=== PATIENT | male | born 1980 | race Caucasian/White ===

== ENCOUNTER 2019-11-07 14:06 | Emergency (ER) | payer OTHER ==
--- NOTE | 2019-11-07 17:02 | RADIOLOGY REPORT (SQ) ---
EXAM DESCRIPTION: FOOT LEFT COMPLETE IMAGES COMPLETED DATE/TIME: 11/07/2019 3:45 pm REASON FOR STUDY: possible stingray injury, medial foot COMPARISON: None. NUMBER OF VIEWS: Three views. TECHNIQUE: AP, lateral and oblique radiographic images acquired of the left foot. LIMITATIONS: None. FINDINGS: MINERALIZATION: Normal. BONES: No acute fracture or dislocation. No worrisome bone lesions. JOINTS: No effusions. SOFT TISSUES: No soft tissue swelling. No foreign body. OTHER: No other significant finding. IMPRESSION: No radiographic abnormality of the left foot. TECHNICAL DOCUMENTATION: JOB ID: [id number] [employer]- All Rights Reserved Reading location - IP/workstation name: [email or web address]
--- NOTE | 2019-11-07 17:27 | ER Document Report ---
HPI - HPI Time Seen by Provider: 11/07/19 14:46 Pain Level: 2 Notes: 38-year-old male patient presenting to the emergency department with possible stingray injury. [place] felt what he thought was a stingray under his foot and then felt a sharp stabbing sensation to the medial left foot. He states the pain was very severe initially. He reports that he is otherwise healthy and all immunizations are up-to-date. - MUSCULOSKELETAL Musculoskeletal: REPORTS: Extremity pain Past Medical History - General Information source: Patient - Social History Smoking Status: Never Smoker Chew tobacco use (# tins/day): No Frequency of alcohol use: None Drug Abuse: None Family History: Reviewed & Not Pertinent Patient has homicidal ideation: No - Past Medical History Cardiac Medical History: Reports: Hx Hypertension Past Surgical History: Reports: Hx Abdominal Surgery - hernia repair, Hx Appendectomy, Hx Orthopedic Surgery - left knee Vertical Provider Document - CONSTITUTIONAL Notes: PHYSICAL EXAMINATION: GENERAL: Well-appearing, well-nourished and in no acute distress. HEAD: Atraumatic, normocephalic. EYES: Pupils equal round extraocular movements intact, conjunctiva are normal. ENT: Nares patent NECK: Normal range of motion LUNGS: No respiratory distress Musculoskeletal: Normal range of motion NEUROLOGICAL: Normal speech, normal gait. PSYCH: Normal mood, normal affect. SKIN: Small puncture wound noted to medial left foot, mild surrounding erythema. Dorsalis pedis pulse strong, cap refill is in 3 seconds. Course - Re-evaluation Re-evalutation: Small puncture wound noted to medial left foot. Nothing found on the x-ray. Will start patient on doxycycline and provide pain medication. Patient reports pain much improved after soaking foot in hot water. Patient will be discharged home at this time. - Vital Signs Vital signs: Temp Pulse Resp BP Pulse Ox 99.2 F 93 20 143/90 H 96 11/07/19 14:44 11/07/19 14:11 11/07/19 14:11 11/07/19 14:11 11/07/19 14:11 Discharge - Discharge Clinical Impression: Contact with stingray as cause of accidental injury Condition: Stable Disposition: HOME, SELF-CARE Additional Instructions: Marine Puncture Envenomation Sea urchins, stonefish, catfish, and stingrays have spines that can puncture. The spines can break off under the skin. Even if the spine pulls out cleanly, it often leaves its "skin" behind. The skin on a spine contains mild poison. There is also risk of infection. If any portion of a spine is left behind, it should be removed. Sometimes a spine can't be found. In these cases we treat for infection, then go after the spine later if things look suspicious. The main symptom of poisoning is VERY severe pain at the site of the puncture. The area may immediately become swollen and red. If the poisoning is severe, there may be weakness and difficulty breathing. Initial treatment is to soak the area in very hot water. This may inactivate the toxin. Pain is best controlled by local anesthetic. Usually we cut open the sting slightly to remove the spine and venom. Return if there's increasingly pain, swelling, redness, or drainage. Come back at once if there's increasing weakness or difficulty breathing. Please take antibiotics as prescribed. Please use the narcotic pain medication for severe pain only. You may take ibuprofen 600 mg every 6 hours for pain and inflammation. This can be purchased [id number]. Soak the foot in very hot water to help with the pain as outlined above. Follow-up with your primary care provider if symptoms not resolved in the next 3 to 5 days. Prescriptions: Hydrocodone/Acetaminophen [Matador 5-325 mg Tablet] 1 tab PO Q6H #10 tablet Doxycycline Hyclate [Vibramycin 100 mg Tablet] 100 mg PO BID #14 tablet Referrals: MAYCOL,NO [Primary Care Provider] - Follow up as needed
[2019-11-07 17:39] VITALS: BP 151/91
== END 2019-11-07 17:33 | disposition home or self-care (01) ==
LOC: ER 14:06
DX: T63.511A Toxic effect of contact with stingray, accidental (unintentional), initial encounter (principal); M79.672 Pain in left foot; Y92.832 Beach as the place of occurrence of the external cause
CPT/HCPCS: 99283